=== PATIENT | female | born 1960 | race African-American/Black ===

== ENCOUNTER 2018-10-29 12:48 | Emergency (ER) | payer MEDICAID ==
[~2018-10-29] VITALS: Ht 160 cm; Wt 98.0 kg
[2018-10-29 13:08] VITALS: BP 124/81
--- NOTE | 2018-10-29 14:47 | NUR ---
PATIENT AMBULATED TO BED 6
--- NOTE | 2018-10-29 14:50 | NUR ---
57 Y/O F C/O PAIN SWELLING RIGHT 2ND DIGIT X 5 MONTHS S/P CAUGHT FINGER ON DOOR; <3 SEC CAP REFILL ---UNABLE TO USE HAND 2 TO PAIN SWELLING---ICE INCREASES PAIN REQUESTING X-RAY HX---DM RX---GLIPIZIDE 5MG
--- NOTE | 2018-10-29 15:17 | NUR ---
Patient being evaluated by DR TAN at bedside.
[2018-10-29] MEDS ORDERED: traMADol 50 MG TAB PO ONE (15:25)
--- NOTE | 2018-10-29 15:32 | NUR ---
PT REFUSES TRAMADOL AT THIS TIME. PT STATES, "TRAMADOL WON'T DO SHIT FOR ME, I ALREADY KNOW. I DON'T WANT IT." ER MADE AWARE.
--- NOTE | 2018-10-29 15:35 | NUR ---
DR. TAN AT BEDSIDE TALKING TO PT. PT STATES, "GET MY PAPERWORK NOW." DR. TAN STATED HE IS GOING TO SEE A PT AND WILL DO IT.
--- NOTE | 2018-10-29 15:38 | NUR ---
PT GIVEN A KAYLA TAPE SPLINT OF THE 2ND AND 3RD FINGERS OF THE RIGHT HAND. PMSCs INTACT, PT STATES THE TAPE IS NOT TOO TIGHT. PT GIVEN A SLING. APPLIED TO PT'S RIGHT SIDE AND SECURED IN PLACE. PT STATES SLING IS AT A COMFORTABLE HEIGHT.
--- NOTE | 2018-10-29 15:45 | NUR ---
Received report from Marylu ANDERSON; Assumed care of patient
[2018-10-29 15:55] VITALS: BP 121/80
--- NOTE | 2018-10-29 15:55 | NUR ---
Patient discharged with v/s stable. Written and verbal after care instructions given and explained. Patient alert, oriented and verbalized understanding of instructions. Ambulatory with steady gait. All questions addressed prior to discharge. ID band removed. Patient advised to follow up with PMD. Rx of Fioricet 50mg given. Patient educated on indication of medication including possible reaction and side effects. Opportunity to ask questions provided and answered.
== END 2018-10-29 15:55 | disposition home or self-care (01) ==
LOC: MED 12:48
DX: M79.644 Pain in right finger(s) (principal); M79.89 Other specified soft tissue disorders; Z88.6 Allergy status to analgesic agent
CPT/HCPCS: 73130; 99283

== ENCOUNTER 2019-04-02 13:13 | Emergency (ER) | payer MEDICAID ==
[~2019-04-02] VITALS: Ht 157.5 cm; Wt 96.4 kg
[2019-04-02 13:35] VITALS: BP 135/99
[2019-04-02 14:59] VITALS: BP 120/84
--- NOTE | 2019-04-02 15:51 | NUR ---
CALLED FOR PT IN THE LOBBY AND OUTSIDE, DID NOT GET A RESPONSE.
--- NOTE | 2019-04-02 15:51 | NUR ---
PATIENT LEFT WITHOUT BEING SEEN BY DR. TAN. NO FURTHER CARE PROVIDED FOR PATIENT.
== END 2019-04-02 15:51 | disposition left against medical advice (07) ==
LOC: MED 13:13
DX: M25.571 Pain in right ankle and joints of right foot (principal); E11.9 Type 2 diabetes mellitus without complications; Z79.84 Long term (current) use of oral hypoglycemic drugs; Z53.21 Procedure and treatment not carried out due to patient leaving prior to being seen by health care provider
CPT/HCPCS: 73610; 99281